=== PATIENT | female | born 1980 | race Caucasian/White ===

== ENCOUNTER 2016-06-19 08:23 | Day surgery (SDC) | payer BC ==
--- NOTE | 2016-06-18 15:29 | HP ---
ADMIT DATE: 06/19/2016 HISTORY OF PRESENT ILLNESS: The patient is a pleasant 35-year-old who underwent lumbar microdiscectomy at L5-S1 on the right, 04/24/2016. She has a large herniated disc fragment and did well from that surgery for about 2 weeks. Then, she developed recurrent pain in her right buttock and posterior thigh. She now has severe pain in her lower back on the right side, which radiates to the right buttock, posterior thigh, posterior leg along with tingling in the lateral aspect of her right foot. There is no problem on the left side. She feels a little weakness in her right foot. She rates her pain as 10/10. This pain is constant, but worsens with virtually any activity. She has difficulty tolerating pain medications. She is taking tramadol and Tylenol currently. PAST MEDICAL HISTORY: None reported. PAST SURGICAL HISTORY: Right knee surgery 2008, lumbar microdiskectomy L5-S1 right in April 2016. FAMILY HISTORY: Heart disease. 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 She is single. She does not smoke. She quit smoking more than one year ago. She drinks alcohol one to two times per year. ALLERGIES: PENICILLIN AND AMOXICILLIN. CURRENT MEDICATIONS: Tramadol and Tylenol. REVIEW OF SYSTEMS: A 12-point review of systems was obtained and is noncontributory except for that mentioned above. PHYSICAL EXAMINATION: Neurosurgery examination: GENERAL APPEARANCE: Alert, pleasant, no acute distress. HEAD: Normocephalic and atraumatic. SKIN: Warm and dry. BACK: Paraspinal muscle bulk and strength were normal. There was a well-healed midline incision. There is tenderness of lower lumbar spine to the right side of the midline. MUSCULOSKELETAL: Lumbar paraspinal muscle bulk is normal, restricted range of motion of lumbar spine, [id number] tenderness of lower lumbar spine with palpation, normal range of motion of the lower extremities bilaterally. EXTREMITIES: No clubbing, cyanosis, or edema. NEUROLOGIC: Alert and oriented x 3, normal recent and remote memory, strength 5/5 in bilateral lower extremities, there is a decreased sensation in the lateral aspect of her right foot. Sensation was otherwise normal to light touch in both lower extremities, reflexes were normal except for an absent right ankle jerk, there is markedly positive straight leg raising on the right side with back and right leg pain relieved by Lasegue's maneuver, antalgic gait. IMAGING: I reviewed a lumbar MRI scan from 06/07/2016. On that study, there are postoperative changes. There is a large recurrent disc seen at L5-S1, right. There is marked nerve root compression associated with this. ASSESSMENT: Intervertebral disc disorders with radiculopathy, lumbosacral region. PLAN: The patient has a large recurrent disc with nerve root compression on the right at L5-S1 along with severe radiculopathy. My recommendation is for reoperation. I explained at this point, I would perform a simple microsurgery and not consider an instrumented fusion for her. I explained that if this were to occur again, I would fuse her back. I discussed with her the surgery and the risks. She would like to go ahead. We will make the arrangements. BRANDIN VARGAS MD DR: QING/bety JOB#: [id number] / [id number] ANUSHA
[~2016-06-19] VITALS: Ht 175.3 cm; Wt 70.8 kg
[~2016-06-19 08:23] MED LIST: ACET500T68 PO; BACITRACIN 50,000 UNIT in IV NORMAL SALINE 1000ML BAG 1,000 ML IRR ONE; BUPIVAC MPF-EPI 0.5%-1:200000 30 ML VIAL. ONE; CYCL10TA2 PO; FENTANYL PF 100 MCG/2 ML VIAL. IV PRN; GELATIN SPONGE SIZE 100. ONE; IV RINGERS,LACTATED 1000ML 1,000 ML IV SCH; KETOROLAC 60 MG/2 ML SYRINGE FOR OR. ONE; LIDOCAINE 1% 1 ML SYRINGE. ID PRN; ONDANSETRON PF 4 MG/2 ML VIAL. IV PRN; OXYC-323 PO; PROCHLORPERAZINE 10 MG/2 ML VIAL. IV PRN; THROMBIN 20,000 UNIT SPRAY.SYRN KIT TP ONE; TRAM50TA PO; VANCOMYCIN 1GM IVPB FOR OMNI 250 ML IV ONE
[2016-06-19] MEDS ORDERED: ONDANSETRON PF 4 MG/2 ML VIAL. ONE (08:35)
[2016-06-19] MEDS ORDERED: DEXAMETHASONE SOD PHOS 20 MG/5 ML VIAL. ONE (08:35)
[2016-06-19] MEDS ORDERED: LIDOCAINE 2% 100 MG/5 ML DISP.SYRIN. ONE (08:35)
[2016-06-19] MEDS ORDERED: PROPOFOL 20 ML IV ONE (08:35)
[2016-06-19] MEDS ORDERED: EPHEDRINE PF IN SALINE 50 MG/5 ML DISP.SYRIN. IV ONE (08:35)
[2016-06-19] MEDS ORDERED: FENTANYL PF 100 MCG/2 ML VIAL. ONE (08:36)
[2016-06-19] MEDS ORDERED: ROCURONIUM 50 MG/5 ML VIAL. ONE ×2 (08:36)
[2016-06-19] MEDS ORDERED: PROPOFOL 50 ML IV ONE ×2 (08:36→10:45)
[2016-06-19] MEDS ORDERED: REMIFENTANIL 2 MG VIAL. IV ONE (08:37)
[2016-06-19] MEDS ORDERED: MORPHINE SULFATE 10 MG/ML VIAL. ONE (08:51)
[2016-06-19] MEDS ORDERED: SCOPOLAMINE 1.5MG PATCH. TD SCH (09:00)
[2016-06-19] MEDS ORDERED: NEOSTIGMINE METHYLSULFATE 5 MG/5 ML SYRINGE. ONE (10:33)
[2016-06-19] MEDS ORDERED: GLYCOPYRROLATE 1 MG/5 ML VIAL. ONE (10:33)
[2016-06-19 10:49] LABS: NEG OBC UR NEG; POS OBC UR POS
[2016-06-19] MEDS ORDERED: DESFLURANE > 120 MINUTES IH ONE (11:54)
[2016-06-19] MEDS ORDERED: ACETAMINOPHEN INTRAVENOUS 100 ML IV ONE ×2 (12:15→12:18)
[2016-06-19] MEDS ORDERED: KETOROLAC TROMETHAMINE 30 MG/ML SYRINGE. IV ONE (12:15)
[2016-06-19] MEDS ORDERED: KETOROLAC TROMETHAMINE 30 MG/ML SYRINGE. ONE (12:19)
[2016-06-19] MEDS: MORPHINE SULFATE 2 MG/ML DISP.SYRIN. IV PRN ×4 (12:46→13:23)
[2016-06-19] MEDS: HYDROMORPHONE 2 MG/ML VIAL. IV PRN ×4 (13:05→13:43)
--- NOTE | 2016-06-19 13:28 | DISCH ---
DISCHARGE INSTRUCTIONS Condition on Discharge Condition on Discharge: Stable Activity After Discharge Activity Instructions for Disc: Activity as tolerated, Avoid exertion Other activity instructions: no driving for a week Bathing Instructions: Shower-keep dressing dry Lifting Instructions after Dis: No heavy lifting, No pulling or pushing, Do not lift >10 pounds Diet after Discharge Additional Diet Restrictions: resume home diet Wound Incision Care Wound/Incision Care: Ice to area for comfort Other wound/incision instructi: may remove dressing in 48 hrs if dry then may shower if dry, no soaking Contacting the DRMaggie after DC Call your doctor for: Concerns you may have Follow-Up Follow up with: Dr. Vargas in 2 weeks [phone] BRANDIN VARGAS MD Jun 19, 2016 13:28
[2016-06-19] MEDS ORDERED: DOCU-27 PO (13:30)
[2016-06-19] MEDS ORDERED: TRAMADOL 50 MG TABLET. PO PRN (13:30)
[2016-06-19 13:33] VITALS: BP 119/61
--- NOTE | 2016-06-19 17:33 | OP ---
DATE OF SURGERY: PREOPERATIVE DIAGNOSES: Recurrent herniated disk, L5-S1 right with right lumbar radiculopathy. POSTOPERATIVE DIAGNOSIS: Recurrent herniated disk, L5-S1 right with right lumbar radiculopathy. OPERATION PERFORMED: Hemilaminotomy and microdiskectomy, re-op right L5-S1. The operation was done with EMG monitoring, fluoroscopy, microscopic dissection. ELEMENTARY SECRETARY: Joey López M.D. assisted with surgery, assisted with the exposure, the microdiskectomy as well as the closure. OPERATIVE INDICATIONS: The patient is a very pleasant 35-year-old who recently underwent lumbar microsurgery for a herniated disk at L5-S1 on the right and did very well for several weeks. She then developed recurrent pain, which became extremely severe. On imaging studies, there was a large recurrent disk at the level of her previous surgery. I recommended reoperation with diskectomy. I spoke with her about the surgery, the risks, the technique and the expected postoperative course and she wished to go ahead. DESCRIPTION OF PROCEDURE: Following general endotracheal anesthesia, the patient was positioned prone on the Alejandro table. Her lumbar region was prepped and draped in standard fashion. ZACK hose and AV impulse boots were applied for DVT prophylaxis. A microscope was draped. Fluoroscopy was draped and brought into the field. Vancomycin 1 gm was given. Using fluoroscopic guidance, her previous incision was reopened. It was taken down through the skin and subcutaneous tissue and reflected the paraspinal muscles and placed a [place] micro disk retractor, brought in the microscope and the remainder of surgery done with the microscope using microscopic technique. She ____ and I trimmed this away and larger previous hemilaminotomy and foraminotomy at L5-S1 and confirmed my positions fluoroscopically. I worked down trimming the medial aspect of the facet and worked gently just lateral to the dura and exposed the region of the disk at L5-S1. There was a large recurrence beneath the dura and root, which was at and just above the level of the disk. This was densely adherent to the underlying dura and I worked and further removed bone until I was able to gently grasp the recurrent disk and tease this away, which came as one large piece. There were 2 other smaller pieces there that I removed and as I worked, the region became very well decompressed and easily able to be mobilized. I irrigated copiously with antibiotic solution. I explored carefully and I assured I entered the disk space and performed a generous diskectomy, although there was not a significant amount of disk within the disk space. I irrigated copiously. I worked diligently and obtained excellent hemostasis, closed the wound then in layers with absorbable suture. Skin was closed with 4-0 subcuticular stitch. The operation went very well and the patient was awakened uneventfully. I was quite pleased with the surgery. BRANDIN VARGAS MD DR: QING/bety JOB#: [id number] / [id number]
--- NOTE | 2016-06-20 16:56 | PATHOLOGY ---
PATHOLOGY REPORT * * * * * * * * FINAL DIAGNOSIS: Segments of fibrocartilaginous, fibroadipose, and skeletal muscle tissue and bone, lumbar disc and decompression: - Degenerative changes and scarring of fibrocartilaginous tissue. COMMENT: There is no evidence of an acute inflammatory process or malignancy. (ROCKM:; d/t: 06/20/16) REPORT ELECTRONICALLY SIGNED BY: Chris Veloz M.D. DATE/TIME: 06/20/2016 16:55 * * * * * * * * GROSS PATHOLOGY: Received in formalin labeled "Remington Ramires, lumbar disc and decompression" are multiple segments of dooley, rubbery, and gritty tissue admixed with bone. The specimen measures 5.2 x 4.8 x 1.1 cm in aggregate dimensions. The tissue is submitted representatively in cassette A1, following decalcification. (CAA; 06/19/2016) INITIAL CPT CODE(S): A; 61917, 93640 Professional services performed by [facility] [address] Technical services performed by [facility] at [address] [place] [address] [address] [address]. SPECIMEN(S) RECEIVED: A.Lumbar disc and decompression CLINICAL HISTORY: Recurrent lumbar herniated disc PATIENT: REMINGTON RAMIRES /AGE: 408/24/1980 (Age: 35) PATIENT #: [id number] ALT CASE #: SPECIMEN COLLECTION DATE: 06/19/2016 SPECIMEN RECEIVED DATE: 06/19/2016 [facility] - [address] [place] [address] - PHONE: [phone] * * * END OF REPORT * * *
== END 2016-06-19 14:30 | disposition home or self-care (01) ==
LOC: SURG 08:23
PROVIDERS: ATTEND Neurological Surgery
DX: M51.17 Intervertebral disc disorders with radiculopathy, lumbosacral region (principal); F41.9 Anxiety disorder, unspecified; Z72.89 Other problems related to lifestyle; Z87.891 Personal history of nicotine dependence; Z98.890 Other specified postprocedural states
CPT/HCPCS: 36415; 63042; 76000; 81025; 87641; J0131; J1100; J1170; J1885; J2270; J2405; J2704; J3010; J3370; J3490; J7030; J2710; J7120

== ENCOUNTER → 2016-08-01 | Outpatient (CLI) | payer BC ==
[~2016-08-01] MED LIST changes: -BACITRACIN 50,000 UNIT in IV NORMAL SALINE 1000ML BAG 1,000 ML IRR ONE; -BUPIVAC MPF-EPI 0.5%-1:200000 30 ML VIAL. ONE; +DOCU-27 PO; -FENTANYL PF 100 MCG/2 ML VIAL. IV PRN; +GADOBUTROL 7.5 MMOL/7.5 ML VIAL IV ONE; -GELATIN SPONGE SIZE 100. ONE; -IV RINGERS,LACTATED 1000ML 1,000 ML IV SCH; -KETOROLAC 60 MG/2 ML SYRINGE FOR OR. ONE; -LIDOCAINE 1% 1 ML SYRINGE. ID PRN; -ONDANSETRON PF 4 MG/2 ML VIAL. IV PRN; -PROCHLORPERAZINE 10 MG/2 ML VIAL. IV PRN; -THROMBIN 20,000 UNIT SPRAY.SYRN KIT TP ONE; -VANCOMYCIN 1GM IVPB FOR OMNI 250 ML IV ONE
--- NOTE | 2016-08-01 09:45 | KCIC ---
PROCEDURE MRI lumbar spine with and without contrast. HISTORY Bilateral radiculopathy and low back pain since March. Surgery in April 2016 and June 2016. TECHNIQUE Sagittal T1, sagittal T2, sagittal STIR, axial T1, and axial T2 sequences are provided. 6 milliliters of intravenous Gadavist was administered and post-contrast axial and sagittal imaging was then performed. COMPARISON Most recent comparison June 07, 2016. FINDINGS There is no malalignment. There is minimal endplate edema at L5-S1. There is no worrisome marrow lesion. There is disc desiccation at L4-L5 and L5-S1, minimal. There is narrowing of disc height at L5-S1. The conus medullaris is normal in signal intensity and in position. The numbering system assumes 5 lumbar type vertebral bodies. Findings by individual level are as follows: L1-L2, L2-L3: There is no canal or foraminal compromise. There is no interval change. L3-L4: Minimal disc bulge and facet hypertrophy are noted without canal or foraminal compromise, probably unchanged. L4-L5: Mild disc bulge and facet hypertrophy are noted without canal or foraminal compromise. L5-S1: Partial laminectomy defect again is noted on the right. The herniation noted previously on the right no longer is visualized. There is enhancing granulation tissue encasing the right S1 nerve root. A minimal disc bulge is noted. There is prominent epidural fat. Thecal sac is diminutive at this level, no definite compression of the sac although there is mild indentation of the right half of the sac secondary to granulation tissue. The left neuroforamen is within normal limits. There is enhancing granulation tissue extending out the right neuroforamen, contacting the L5 nerve root proximally within the foramen. IMPRESSION - Herniation noted previously on the right at L5-S1 is not visualized, presumably secondary to a second surgery at this level. There is enhancing granulation tissue contacting the right half of the thecal sac and encasing the right S1 nerve root, it also likely contacts the right L5 nerve root. - Findings from L1-L2 through L4-L5 are stable. Electronically signed by: Chepe Washington MD (Aug 01, 2016 09:43:48)
--- NOTE | 2016-08-01 10:05 | KCIC ---
PROCEDURE Two-view lumbar spine HISTORY Low back pain. Surgery June 2016. COMPARISON No prior radiographs. FINDINGS Lateral flexion and lateral extension images are obtained. Disc space heights are maintained. There is no significant subluxation with flexion or extension. Vertebral body heights appear grossly maintained. Note there is limited visualization of the lumbosacral junction on the images obtained with extension. IMPRESSION No significant spondylolisthesis with flexion or extension. Electronically signed by: Jasbir Dawn MD (Aug 01, 2016 10:03:32)
== END | disposition home or self-care (01) ==
LOC: KCIC MRI 07:59
PROVIDERS: ATTEND Neurological Surgery
DX: M54.16 Radiculopathy, lumbar region (principal)
CPT/HCPCS: 72100; 72158; A9585

== ENCOUNTER → 2016-08-15 | Outpatient (CLI) | payer BC ==
[~2016-08-15] MED LIST changes: -GADOBUTROL 7.5 MMOL/7.5 ML VIAL IV ONE; +IOHEXOL 180 MG/ML 10 ML VIAL. ONE; +METH-38 PO; +methylPREDNISolone ACETATE 40 MG/ML VIAL. ONE; +methylPREDNISolone ACETATE 80 MG/ML VIAL. ONE
--- NOTE | 2016-08-16 09:32 | PN ---
DATE: 08/15/2016 CHIEF COMPLAINT: Low back and right lower extremity. HISTORY OF PRESENT ILLNESS: This is a 35-year-old female who presents with history of pain in the low back and right lower extremity for many years, but worse over the past 4-5 months. The patient reports she had diskectomy in 04/23/2016 and 06/19/2016, very close to each other, just a few months apart and had pain since that time, but always in the right leg in the low back, right posterior gluteus, posterior thigh, lateral thigh, anterior thigh, lateral and posterior lower leg, medial lower leg and anterior lower leg to the top of the foot, also involving all the toes with some tingling and numbness. The patient reports the pain is constant, throbbing, shooting with tingling and radiating pain, burning and numb in the foot on the right side. No symptoms on the left side, but across the low back to some extent as well. The patient has had physical therapy, is going on currently, has had chiropractic treatment in the past without improvement and was never completely better after her surgery, but the pain was improved for a few weeks, but now has returned basically to the baseline level. The patient did have an MRI scan of the lumbar spine dated 06/07/2016 showing interval increase in the right paracentral lateral recess, disk protrusion with surrounding scar granulation tissue resulting in effacement of the exiting L5 nerve root and traversing right S1 nerve root causing mild right foraminal stenosis and moderate narrowing of the thecal sac at this level. The patient reports it awakens her from sleep at least every 1-2 hours at night, does not affect her bowel or bladder control, but does affect her ability to walk and she has been walking with significant limp favoring the right lower extremity, but not using any assistive devices to ambulate currently. The patient reports disability rate from 0-10, 10 being the worst, at 6 with family home responsibilities, 10 with recreation and occupation, 8 with social activity and sexual behavior, 5 with self-care and 0 with life support activities. The patient is currently off work. She is unable to perform her duties because of the pain. She has tried Percocet, hydrocodone, Flexeril, tramadol, and methocarbamol. Tramadol and methocarbamol was taken last night. The others did not agree with her stomach. The patient reports no complete loss of motor function, but significant fatigability with the right lower extremity with walking and ambulating. PAST MEDICAL HISTORY: Borderline diabetes, irregular heart rhythm, and low back pain. PREVIOUS SURGERY: Include right knee scope in 2008 and microdiskectomies in 2016 and 2017 as noted. CURRENT MEDICATIONS: Include docusate, tramadol, acetaminophen and Robaxin. ALLERGIES: THE PATIENT IS ALLERGIC TO PENICILLIN AND AMOXICILLIN. FAMILY HISTORY: Significant for heart disease, thyroid disease as well as low back pain and scoliosis. 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 REVIEW OF SYSTEMS: The patient's review of systems is positive for those items mentioned in history of present illness. All systems were reviewed and otherwise negative. It is complete, full and well documented on the patient's chart. PHYSICAL EXAMINATION: VITAL SIGNS: The patient's blood pressure is 118/63, pulse 67, respirations 18, temperature 98.9 degrees Fahrenheit. Height is 5 feet 9 inches, weight 160 pounds. GENERAL: The patient is awake, alert, oriented, appropriate, very pleasant demeanor. HEENT: Head shows normocephalic, atraumatic. Extraocular movements are intact and symmetrical. Oral cavity shows mucous membranes moist and pink. Dentition is intact. NECK: Shows anterior throat supple without palpable lymphadenopathy noted. Swallow reflex is symmetrical. Neck shows full rotational motion of cervical spine, both laterally as well as extension and flexion without difficulty. CHEST: Shows normal on inspection. Breath sounds clear to auscultation bilaterally. HEART: Shows S1 and S2 clear. No murmurs are auscultated. ABDOMEN: Soft, nontender, and nondistended. No palpable organomegaly is noted. No rebound or guarding demonstrated. BACK: Shows spine grossly in midline. Well-healed surgical scar is noted in the lumbar distribution in the midline. Lumbar paraspinous musculature shows normal in appearance and symmetrical, some mild flattening of lumbar lordotic curvature only mildly so with palpation. Musculature is tender diffusely in the middle and lower distribution bilaterally, right and left, but only to a mild extent diffusely in the lumbar paraspinous muscles both in the low distribution. No tenderness over the spinous processes. No tenderness over the sacrum or sacroiliac regions. The patient does show good rotational motion of the lumbar spine, both laterally as well as extension and flexion without significant difficulty or pain reported. EXTREMITIES: The patient's lower extremities showed deep tendon reflexes at 1+/4 in the patellar and tendo calcaneus tendons are equal. Motor exam is strong with dorsiflexion and extension rated at 5/5. Quadriceps and hamstring flexion 5/5 and equal as well. Peripheral pulses are 2+ in the posterior tibial and dorsalis pedis distribution. No peripheral edema is noted. No clubbing, no cyanosis. Lower extremities are warm and dry to touch, equal in color and appearance. Straight leg raising is negative on the left. The right shows positive straight leg raise at about 35-40 degrees, decreased with knee flexion, sharp and dull discrimination shows significant hyperesthesia and dysesthesias over the right lateral aspect of the inferior thigh approximately 20 cm in this distribution on the right side only. No allodynia, but significant dysesthesia with moderate touch and scraping of the skin with the handle of percussion hammer and decreased sharp and dull discrimination over this area. Otherwise intact bilaterally with sharp and dull discrimination and no other areas of allodynia, hyperesthesia or dysesthesia noted. The patient is able to stand, stand on her toes without significant difficulty or loss of balance, is walking with a significant limping gait favoring the right lower extremity, not using any assistive devices to ambulate. IMPRESSION: 1. This is a 35-year-old female with significant pain in the low back, right lower extremity in a radicular fashion, status post microdiskectomy x 2 as noted. 2. MRI scan as noted. 3. History of irregular heart rhythm. PLAN: Options were discussed with the patient including conservative medical management, physical therapy and interventional techniques. She is currently involved in physical therapy and enrolled in this. She would like to pursue interventional techniques. We discussed a caudal approach epidural steroid injection description as well as anatomical models to describe the procedure. Risks were discussed including but not limited to bleeding, infection, possibility of epidural hematoma, subsequent neurologic compromise, dural puncture, headaches, spinal cord and/or nerve damage, side effects of steroid medication and poor results regarding pain control. The patient understands and wishes to proceed. The patient will return to clinic in approximately 2 weeks for followup, was counseled on return appointment, activity level and side effects to be aware of. DIAGNOSIS: Lumbar radiculopathy with lumbar post-laminectomy syndrome. PROCEDURE: Caudal approach epidural steroid injection using fluoroscopic guidance under sterile prep and drape using local anesthetic. MEDICATIONS INJECTED: Depo-Medrol 120 mg plus 10 mL of preservative-free normal saline and 2 mL of Isovue contrast. CONDITION AT DISCHARGE: Stable. The patient tolerated procedure well, had no complications. LOIS MOORE MD DR: LUCIANO/bety JOB#: [id number] / [id number]
== END | disposition home or self-care (01) ==
LOC: PNCL 12:42
PROVIDERS: ATTEND Anesthesiology
DX: M54.16 Radiculopathy, lumbar region (principal); M96.1 Postlaminectomy syndrome, not elsewhere classified; F41.9 Anxiety disorder, unspecified
CPT/HCPCS: 62323; J1030; J1040

== ENCOUNTER → 2016-09-05 | Outpatient (CLI) | payer BC ==
--- NOTE | 2016-09-05 18:05 | PAIN ---
DATE OF SERVICE: 09/05/2016 PROGRESS NOTE FOR PAIN CLINIC DIAGNOSES: Lumbar radiculopathy with lumbar herniated disk and post-lumbar laminectomy syndrome HISTORY OF PRESENT ILLNESS: This is a 36-year-old female, who returns for followup status post caudal epidural steroid injection x 1 seen in 08/15/2016. The patient reports that she did well for about 3 days with near 100% improvement and the pain return gradually over the next week or so, even to the point where it was at her baseline in the low back and right lower extremity. The patient reports it awakens her from sleep again at night. She has to reposition, take pain medication at night, get out of bed, change positions, also pain is described as aching and dull, shooting, tingling, burning, stabbing and radiating. The patient reports it is 5 on a scale of 10, it can be as high as 9 on a scale of 10 with decreased activity or sitting. She wish to preparing a paper for school yesterday and reports she sat for 12 hours while she was ____ exacerbated her pain in the back and leg fairly significantly. The patient reports no new motor or sensory deficits, no new bowel or bladder incontinence. PHYSICAL EXAMINATION: VITAL SIGNS: The patient's blood pressure 107/71, pulse 88, respirations are 20, temperature is 98.2 degrees Fahrenheit, weight is 156 pounds. GENERAL: The patient is awake, alert, oriented, appropriate, very pleasant demeanor. HEENT: Head shows normocephalic, atraumatic. Extraocular movements are intact and symmetrical. Oral cavity, mucous membranes are moist and pink. Dentition shows intact. NECK: Shows anterior throat supple. Swallow reflex is symmetrical. CHEST: Shows normal on inspection. Breath sounds are clear to auscultation bilaterally. HEART: Shows S1 and S2 clear. No murmurs auscultated. ABDOMEN: Soft, nontender, nondistended. No palpable organomegaly is noted. BACK: Shows spine grossly midline. Well-healed surgical scar is noted in the lumbar distribution. Lumbar paraspinous musculature appears symmetrical with palpation shows only some mild tenderness with palpation diffusely in the lower lumbar distribution, but is symmetrical without radiation. The patient shows good rotation and motion both laterally as well as extension and flexion without exacerbation of pain. LOWER EXTREMITIES: Showed deep tendon reflexes 1+ in the patellar and tendo calcaneus tendons are equal. Motor exam is strong with 5/5 dorsiflexion, extension, quadriceps and hamstring flexion. Options were discussed with the patient and the patient's old chart was reviewed as her current medication regimen updated. Current review of systems updated today as well. We will proceed with a second caudal approach epidural steroid injection today with fluoroscopic guidance. Risks were again discussed including, but not limited to bleeding, infection, possibility of epidural hematoma, subsequent neurologic compromise, dural puncture, headaches, spinal cord and/or nerve damage, side effects of steroid medication and poor results regarding pain control. The patient understands and wishes to proceed. The patient will return to clinic in approximately 2 weeks for followup, was counseled on return appointment, activity level and side effects to be aware of. DIAGNOSES: Lumbar radiculopathy with lumbar herniated disk and post-lumbar laminectomy syndrome. PROCEDURE: Caudal approach epidural steroid injection using C-arm fluoroscopic guidance under sterile prep and drape using local anesthetic. MEDICATION INJECTED: Depo-Medrol 120 mg plus 10 mL of preservative-free normal saline and 2 mL of Isovue for contrast. CONDITION AT DISCHARGE: Stable. The patient tolerated procedure well, had no complications. LOIS MOORE MD DR: LUCIANO/bety JOB#: [id number] / [id number]
== END | disposition home or self-care (01) ==
LOC: PNCL 09:47
PROVIDERS: ATTEND Anesthesiology
DX: M51.16 Intervertebral disc disorders with radiculopathy, lumbar region (principal); M96.1 Postlaminectomy syndrome, not elsewhere classified; F41.9 Anxiety disorder, unspecified; Z87.39 Personal history of other diseases of the musculoskeletal system and connective tissue
CPT/HCPCS: 62323; J1030; J1040

== ENCOUNTER → 2016-10-03 | Outpatient (CLI) | payer BC ==
[~2016-10-03] MED LIST changes: +HYDR-2666 PO
--- NOTE | 2016-10-04 04:50 | PN ---
DATE: 10/03/2016 PROGRESS NOTE FOR PAIN CLINIC DIAGNOSES: Acute lumbar radiculopathy, lumbar herniated disk and post-lumbar laminectomy syndrome. SUBJECTIVE: This is a 36-year-old female who returns for followup status post caudal epidural steroid injections x 2. The patient reports near 100% relief only for about 2-3 days, then the pain returned in the low back and right greater than left lower extremity. The patient reports 7-8 on scale of 10, it is worse, awakens her from sleep at least once or twice a night, ____ 3 hours at a time, report says sharp, shooting, stabbing, burning pain in the low back and both legs, more on the right than the left. The patient reports no new motor or sensory deficits. No new bowel or bladder incontinence or other complaints. PHYSICAL EXAMINATION: VITAL SIGNS: The patient's blood pressure 98/37, pulse 72, respirations 20, temperature is 98.2 degree Fahrenheit. Height is 5 feet 9 inches, weight is 156 pounds. GENERAL: The patient is awake, alert, oriented, appropriate, very pleasant demeanor. HEENT: Head is normocephalic, atraumatic. Extraocular movements are intact, symmetrical. Oral cavity, mucous membranes are moist and pink. Dentition is intact. NECK: Shows anterior throat supple without palpable lymphadenopathy noted. Swallow reflux is symmetrical. CHEST: Shows normal on inspection. Breath sounds clear to auscultation bilaterally. HEART: Shows S1 and S2 clear. ABDOMEN: Soft, nontender, nondistended. No palpable organomegaly is noted. No rebound or guarding demonstrated. BACK: Shows spine grossly midline. Well-healed surgical scarring is noted in the lumbar distribution. Lumbar paraspinous muscle shows some very mild tenderness to palpation in the middle lower distribution and appeared symmetrical without radiation. The patient shows good rotational motion of lumbar spine both laterally as well as extension and flexion. The patient's lower extremity show deep tendon reflexes at 1+ in the patella and tendo calcaneus tendons. Motor exam is strong with 5/5 dorsiflexion and extension. The patient's quadriceps and hamstring flexion 5/5 equal as well. Options were discussed with the patient. The patient's old chart was reviewed, as was her current medication regimen updated. Current review of systems updated today as well. We will proceed with a third in the series caudal approach epidural steroid injection today with fluoroscopic guidance. Risks were again discussed including, but not limited bleeding, infection, possibility of epidural hematoma, subsequent neurologic compromise, dural puncture, headaches, spinal cord and/or nerve damage, side effects of steroid medication and poor results regarding pain control. The patient understands and wishes to proceed. The patient will return to clinic in approximately 2 weeks for followup. She was counseled as to return appointment, activity level and side effects to be aware of. DIAGNOSES: Lumbar radiculopathy with lumbar herniated disk and post-lumbar laminectomy syndrome. PROCEDURE: Lumbar caudal approach epidural steroid injection using C-arm fluoroscopic guidance under sterile prep and drape using local anesthetic. MEDICATION INJECTED: A 120 mg Depo-Medrol plus 10 mL preservative-free normal saline and 2 mL of Isovue for contrast. CONDITION AT DISCHARGE: Stable. The patient tolerated the procedure well, had no complications. LOIS MOORE MD DR: [email or web address]/bety JOB#: [id number] / [id number]
== END | disposition home or self-care (01) ==
LOC: PNCL 10:07
PROVIDERS: ATTEND Anesthesiology
DX: M51.16 Intervertebral disc disorders with radiculopathy, lumbar region (principal); M96.1 Postlaminectomy syndrome, not elsewhere classified; F41.9 Anxiety disorder, unspecified; Z87.39 Personal history of other diseases of the musculoskeletal system and connective tissue; Z86.69 Personal history of other diseases of the nervous system and sense organs
CPT/HCPCS: 62323; J1030; J1040